=== PATIENT | male | born 1960 | race Caucasian/White ===

== ENCOUNTER 2023-08-12 19:47 | Emergency (ER) | payer MEDICARE, OTHER, SELFPAY ==
[2023-08-12] VITALS (7 sets, daily range): BP systolic 83–135; BP diastolic 51–78; BMI 24.9
--- NOTE | 2023-08-12 20:27 | ED.GENMED ---
History of Present Illness
General
Chief Complaint: Swelling
Source: patient
Exam Limitations: none
Time Seen by Provider: 08/12/23 20:07
Travel History
Have you had any contact with someone who has COVID-19?: No
Do you have any symptoms of coronavirus? Fever > 100 degrees, chills, cough, shortness of breath, sore throat, loss of taste or smell, muscle aches, or headache?: No
History of Present Illness
History of Present Illness:
This is a 63 year old male that comes in with c/o bilateral leg redness and swelling. States that he went to see the PCP today as his feet are swollen. States that he give him a prescription for Bactrim DS for the next 14 days. States that he had
gone to the [place] on Friday and he took his Motorcycle. States that he walked around all over the place as he was unable to find his Motorcycle. States that since then his feet and legs have been swollen. States that he is always SOB.
Denies any fever, chills, chest pain, abd pain, nausea, vomiting, diarrhea, headache, dizziness, urinary burning
Past History
Past History
ED Past Medical History: Other (Chronic low back pain, )
ED Past Surgical History: Orthopedic (Jaw Surgery)
Social History
Tobacco: Smoker
Alcohol: None
Personal:
Living: alone
Review of Systems
Review of Systems
All Other Systems: ROS reviewed and negative except as documented in HPI and ROS
Constitutional: Reports no symptoms; Denies fever or chills
EENT: Reports no symptoms
Respiratory: Reports trouble breathing; Denies cough
Cardiac: Reports no symptoms; Denies chest pain
ABD/GI: Reports no symptoms; Denies abdominal pain, nausea, vomiting or diarrhea
: Reports no symptoms; Denies dysuria, frequency or urgency
Musculoskeletal: Reports edema (Feet and lower legs. +1 pitting)
Skin: Reports other (Redness of the feet and lower legs almost to the knee's on the medial aspect . Slight increased warmth. )
Neurological: Reports no symptoms; Denies dizzy or headache
Psychiatric: Reports no symptoms
Phy Exam
General Physical Exam
General Presentation: no apparent distress
General age: appears stated age
General Skin: warm and dry
General Habitus: normal
General Mental: alert
General Hydration: appears well hydrated
ENT Exam
ENT Exam: TM's normal, pharynx normal and neck supple
Eye Exam
Eye Exam: EOMI
Cardiovascular Exam
Cardiovascular Exam: regular rate/rhythm and normal peripheral pulses
Pulmonary Exam
Pulmonary Exam: lungs clear, no respiratory distress, no rales, chest non tender, no crackles, no rhonchi, no wheezing and no cough
Gastrointestinal Exam
Gastrointestinal Exam: normal bowel sounds, non tender, soft, no organomegaly, no pulsatile mass and non distended
Musculoskeletal Exam
Musculoskeletal Exam: full ROM and edema (Bilateral feet and lower leg swelling +1pitting edema. )
Skin Exam
Skin Exam: normal color, warm/dry, no petechia and other (right second toe with healing blistered area and left second toe. Left great to with blister noted and Planter aspect dry blister noted)
Psychiatric Exam
Psychiatric Exam: normal mood/affect
Scores
Heart Failure Risk
Heart Failure Risk Score: Not Applicable
Course
Orders/Labs/Results
Orders:
Orders
08/12/23 20:27
US Perip Venous LOWER Ext Navneet Urgent
Comment:
Reason For Exam: Lower leg swelling and redness
08/12/23 20:53
Blood Culture Q30M
VANNA Source: Blood/Venous
Specimen Description:
08/12/23 20:54
Complete Blood Count/With Diff Urgent
Comprehensive Metabolic Panel Urgent
Lactic Acid Urgent
Blood Culture Q30M
VANNA Source: Blood/Venous
Specimen Description:
08/12/23 22:44
0.9% Sodium Chloride 1000 ml [Nss] 1,000 ml IV BOLUS
08/12/23 22:45
CT Head W/o Iv Contrast Urgent
Comment:
Reason For Exam: Change in mental status
08/12/23 23:17
Fentanyl, Urine Urgent
Urine Drug Abuse Screen Urgent
Date Specimen was Collected: 08/12/23
Time Specimen was Collected: 22:47
Abnormal Lab Results
08/12/23 08/12/23
20:54 23:17
RBC 4.06 L 10^6/uL
(4.70-6.10)
Hgb 12.8 L g/dL
(13.0-18.0)
Hct 35.7 L %
(39.0-52.0)
MCH 31.5 H pg
(27.0-31.0)
Glucose 139 H mg/dl
(70-99)
Total Protein 6.0 L g/dl
(6.3-8.2)
Urine Opiates Screen Positive H
(Negative)
Urine Fentanyl Screen Positive H
(Negative)
Ur Tricyclics Screen Positive H
(Negative)
Urine Cocaine Screen Positive H
(Negative)
08/12/23 20:54
08/12/23 20:54
H/H slightly low. Glucose nonfasting. Total protein slightly low. Lactic acid normal at 1.7 Urine Drug positive for opiates, Fentanyl, Tricyclics, Cocaine,
Vital Signs
Initial and Last Documented VS:
Initial Vital Signs
Temp Pulse Resp BP Pulse Ox
100.3 F 107 18 135/78 94
08/12/23 19:51 08/12/23 19:51 08/12/23 19:51 08/12/23 19:51 08/12/23 19:51
Last Documented Vital Signs
Temp Pulse Resp BP Pulse Ox
100.3 F 107 18 98/64 96
08/12/23 19:51 08/12/23 19:51 08/12/23 19:51 08/13/23 01:03 08/13/23 01:03
MDM/Problems Addressed
Differential Diagnosis Includes:
Cellulitis,
MDM/Problems Addressed:
This is a 63 year old male that comes in with c/o swelling and redness of his feet and lower legs. States that he walked a lot on Friday and that was when this started. Today patent went to see the PCP and was given Bactrim DS for the next 14
days.
Will check labs, US legs
Back into see patient. Explained that his Blood work shows a normal WBC and lactic acid. Patient has been given a prescription from is PCP. Feel that he can go home. Use the antibiotic that he was given and will give patient a not to be off from
work and have him elevated is legs over the next 2 days to help bring down the swelling. Patient to return with increased redness or any other concerns.
Nursing went in to discharge patient. Patient very lethargic. Pupils [place] at this time. Concern that patent went into the bathroom and took something. Patient is able to be awakened and he denies this but keeps his eyes closed when talking. Will
give IV fluids. CT head and get Urine drug. Patient at this time is to lethargic to send home.
Chronic conditions affecting care:
NA
Acute Exacerbation and/or Progression of Chronic Illness:
NA
*Radiology
Radiology exam reviewed: radiology read reviewed (US-NO sonographic evidence for lower extremity venous thrombosis. CT head-No acute hemorrhage, Herniation, or hydrocephalus. No calvarial fracture. The visualized paranasal sinuses and mastoid air
cells are clear. )
*Pulse Oximetry
Patient hypoxic: no
*EKG
Interpreted by ED Provider?: NA
Rate: EKG- N/A
*Complex Care Nurse Interpretation
Rate: Complex Care Nurse- N/A
*Critical Care Note
Total Time (30-74mins, 75-104mins- exclusive of procedures): Not Applicable
ED Attending Note
-
Portions of this chart may have been created with voice recognition software.� Occasional wrong word or��sound alike� substitutions may have occurred due to the inherent limitations of voice recognition software.
Discharge Plan
Departure
Patient Disposition: Home (Routine Discharge)
Date of Disposition: 08/13/23
Time of Disposition: 02:52
Patient with high blood pressure during this ER visit?: No
Condition: Good
Covid-19: Not Applicable
Discharge Problem:
Bilateral cellulitis of lower leg
Instructions: Cellulitis (Skin Infection), Adult ED
Prescriptions:
No Action
quetiapine 25 mg Tablet
25 mg PO HS
Referrals:
NONE,* [Active] -
Stand Alone Forms: Return to Work
Activity Restrictions/Additional Instructions:
As discussed, your blood work is normal. Your ultrasound is negative for any blood clots. Please start the antibiotic that you were given by the family doctor. Please elevate our legs when sitting around at home. IF YOU HAVE INCREASED REDNESS,
FEVER. OR YOU HAVE ANY OTHER CONCERNS PLEASE RETURN TO THE EMERGENCY ROOM.
Interventions
Interventions:
*Risk Screen - Suicide Last Done: 08/12/23 19:51
*General Assessment Last Done: 08/12/23 19:51
*Neglect/Abuse Screening Last Done: 08/12/23 19:51
*ED COVID-19 Vaccine History Last Done: 08/12/23 20:51
ED- Cardiac Assessment Last Done: 08/12/23 20:51
ED- Pulmonary Assessment Last Done: 08/12/23 20:51
ED-Skin Assessment Last Done: 08/12/23 20:51
Discharge Date and Time
Print Language: DIVEHI
[2023-08-12 21:03] LABS: % Basophils 0.3 % (0-2); % Eosinophils 2.9 % (0-6); % Immature Granulocytes 0.3 % (0-0.5); % Lymphocytes 21.7 % (20.5-51.1); % Monocytes 7.3 % (1.7-9.3); % Neutrophils 67.5 % (42.2-75.2); Absolute Eosinophils 0.2 10^3/uL (0-0.7); Absolute Lymphocytes 1.3 10^3/uL (1.2-3.4); Absolute Monocytes 0.4 10^3/uL (0.1-0.6); Absolute Neutrophils 3.9 10^3/uL (1.4-6.5); Hematocrit 35.7 % (39.0-52.0); Hemoglobin 12.8 g/dL (13.0-18.0); Mean Corp Hgb Conc. 35.9 g/dL (33.0-37.0); Mean Corpuscular Hgb 31.5 pg (27.0-31.0); Mean Corpuscular Volume 87.9 fL (80.0-94.0); Mean Platelet Volume 9.4 fL (7.4-10.4); Nucleated Red Blood Cells % 0 % (-); Platelet Count 223 10^3/uL (130-400); Red Blood Cell Count 4.06 10^6/uL (4.70-6.10); Red Cell Dist. Width 13.2 % (11.5-14.5); White Blood Cell Count 5.8 10^3/uL (4.8-10.8)
[2023-08-12 21:15] LABS: Lactic Acid 1.7 mmol/L (0.7-2.0)
[2023-08-12 21:16] LABS: ALT (SGPT) 17 U/L (0-50); AST (SGOT) 25 U/L (17-59); Albumin 3.7 g/dl (3.5-5.0); Alkaline Phosphatase 115 U/L (38-126); Blood Urea Nitrogen 9 mg/dl (9-20); Calcium 9.7 mg/dl (8.4-10.2); Carbon Dioxide 28 mmol/L (22-30); Chloride 100 mmol/L (98-107); Estimated Creatinine Clearance 76 ml/min; Glucose 139 mg/dl (70-99); Potassium 3.7 mmol/L (3.5-5.1); Sodium 135 mmol/L (135-145); Total Bilirubin 0.5 mg/dl (0.2-1.3); eGFR > 60.00
[2023-08-12] MEDS: NSS 1000 IV (22:48)
[2023-08-12 23:55] LABS: Amphetamines Negative (Negative); Barbiturates Negative (Negative); Benzodiazepines Negative (Negative); Buprenorphine Negative (Negative); Cocaine Positive (Negative); Marijuana Negative (Negative); Methadone Negative (Negative); Methamphetamines Negative (Negative); Opiates Positive (Negative); Phencyclidine Negative (Negative); Tricyclic Antidepressants Positive (Negative)
[2023-08-13] VITALS (8 sets, daily range): BP systolic 78–121; BP diastolic 47–78
[2023-08-13 00:07] LABS: Fentanyl, Urine Positive (Negative)
== END 2023-08-13 06:01 | disposition home or self-care (01) ==
LOC: EMR 19:47
PROVIDERS: Clinical Nurse Specialist Family Health; EMERGENCY PHYSICIAN Emergency Medicine
DX: L03.115 Cellulitis of right lower limb (principal); L03.116 Cellulitis of left lower limb; F17.200 Nicotine dependence, unspecified, uncomplicated
CPT/HCPCS: 99285; 96360; 96361; 70450; 80053; 80306; 80307; 83605; 85025; 87040; 93005; 93970